=== PATIENT | female | born 1935 | race Caucasian/White ===

== ENCOUNTER 2019-03-13 20:08 | Emergency (ER) | payer MEDICARE ==
[~2019-03-13] VITALS: Ht 165.1 cm; Wt 62.0 kg
[2019-03-13 21:47] VITALS: BP 171/85
== END 2019-03-13 22:10 | disposition home or self-care (01) ==
LOC: ED 22:04
DX: R42 Dizziness and giddiness (principal); I10 Essential (primary) hypertension; R51 Headache; R11.0 Nausea
CPT/HCPCS: 36415; 70551; 80048; 82040; 85025; 93005; 99284; Q0162